=== PATIENT | female | born 1970 | race Caucasian/White ===

== ENCOUNTER 2020-12-22 12:49 | Outpatient (CLI) | payer BC, SELFPAY ==
--- NOTE | ~2020-12-22 | MM_ITS ---
EXAMINATION: MM screening [facility] BI w [facility]raig HISTORY: Screening TECHNIQUE: Craniocaudal and mediolateral oblique 3-D tomosynthesis images were obtained and synthetic 2-D images were generated. CAD analysis was submitted and interpreted. COMPARISON: Comparison to multiple prior studies sequentially, with oldest reviewed study dated 09/07. BREAST PARENCHYMAL COMPOSITION: There are scattered areas of fibroglandular density. FINDINGS: There is no evidence of suspicious mass, calcification, or architectural distortion to sugg est malignancy in either breast. There has been no suspicious interval change. IMPRESSION: 1. No mammographic evidence of malignancy. 2. Recommend routine screening mammography in one year. BI-RADS Category 1: Negative Reviewed, dictated and finalized at location A.
== END 2020-12-22 12:50 | disposition home or self-care (01) ==
LOC: ANHIMG 12:52
PROVIDERS: PCP Family Medicine; Visit Provider Physician Assistant Medical
DX: Z12.31 Encounter for screening mammogram for malignant neoplasm of breast (principal)
CPT/HCPCS: 77063; 77067

== ENCOUNTER → 2021-06-08 12:29 | Outpatient (CLI) | payer BC, SELFPAY ==
--- NOTE | ~2021-06-08 | XR_ITS ---
EXAMINATION: XR elbow LT min 3V EXAM DATE: 06/08/2021 12:53 INDICATION: M79.639 - Pain in unspecified forearm. TECHNIQUE: Left elbow frontal, lateral with flexion, and oblique projections obtained and reviewed. There is no prior study for comparison. FINDINGS: Left elbow anterior humeral line intact. There is acute closed posttraumatic nondisplace d fracture through the left radial head. There is an elbow joint effusion. Some soft tissue swelling identified medially. IMPRESSION: Acute nondisplaced left radial head fracture. Reviewed, dictated and finalized at location B.
--- NOTE | ~2021-06-08 | XR_ITS ---
EXAMINATION: XR wrist LT w scaphoid, XR forearm LT 2V EXAM DATE: 06/08/2021 12:53 (accession [id number]), 06/08/2021 12:54 (accession [id number]) INDICATION: M79.639 - Pain in unspecified forearm. Patient fell onto both palms/wrists 2 days ago, c/ o anterior L wrist pain, L posterior forearm pain and L medial elbow pain. TECHNIQUE: Left wrist frontal, frontal with ulnar deviation, oblique and lateral projections obtained and reviewed. Frontal and lateral projections left forearm. FINDINGS: Difficult to identify nondisplaced radial head fracture. Left wrist scapholunate joint spac e is maintained. There are no acute left wrist fractures or dislocations identified. There is no sub cutaneous gas. The soft tissue is unremarkable. There are no radiopaque foreign bodies. IMPRESSION: 1. Left wrist exam without acute osseous findings. 2. Poorly visualized radial head fracture. Reviewed, dictated and finalized at location B. IMPRESSION: 1. Left wrist exam without acute osseous findings. 2. Poorly visualized radial head fracture.
== END ==
PROVIDERS: PCP Family Medicine; Visit Provider Nurse Practitioner Family
DX: S52.125A Nondisplaced fracture of head of left radius, initial encounter for closed fracture (principal)
CPT/HCPCS: 73080; 73090; 73110

== ENCOUNTER → 2021-07-06 11:27 | Outpatient (CLI) | payer BC, SELFPAY ==
--- NOTE | ~2021-07-06 | XR_ITS ---
EXAMINATION: XR foot LT min 3V DATE: 07/06/2021 16:54 INDICATION: Left foot pain TECHNIQUE: Dorsoplantar, lateral, and 2 oblique views of the left foot were obtained. COMPARISON: 10/23/2014 FINDINGS: There are healed fractures at the lateral aspect of the cuboid and calcaneus. An accessory os naviculare is noted. No acute fracture is identified. Bone alignment is normal. 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 The soft tissues are unremarkable. IMPRESSION: 1. No acute osseous abnormality. Reviewed, dictated and finalized at location A.
--- NOTE | ~2021-07-06 | XR_ITS ---
EXAMINATION: XR ankle LT min 3V DATE: 07/06/2021 16:54 INDICATION: Left ankle pain TECHNIQUE: Anteroposterior, lateral, mortise, and additional oblique view of the ankle were obtained. 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 No acute fracture is identified. Bone alignment is normal. The mortise is intact. The soft tissues are unremarkable. An accessory os naviculare is noted. IMPRESSION: 1. No acute osseous abnormality. Reviewed, dictated and finalized at location A.
== END ==
PROVIDERS: PCP Nurse Practitioner Family; Visit Provider Nurse Practitioner Family
DX: M25.572 Pain in left ankle and joints of left foot (principal); M25.475 Effusion, left foot
CPT/HCPCS: 73610; 73630

== ENCOUNTER → 2022-08-09 15:21 | Outpatient (CLI) | payer BC, SELFPAY ==
--- NOTE | ~2022-08-09 | XR_ITS ---
XR_[id number]_CR DATE: 08/09/2022 15:36 INDICATION: Neck pain TECHNIQUE: AP, lateral, open-mouth views COMPARISON: None FINDINGS: There is straightening of the cervical spine. C1 and C2 are normally aligned and the odonto id process is intact. No fracture or dislocation or locked facet or prevertebral soft tissue swelling. There is minimal loss of interspace height and slight retrolisthesis at C5-6. The cervical interspace s are otherwise well preserved. IMPRESSION: Mild degenerative disc disease and minimal retrolisthesis at C5-C6 Straightening Reviewed, dictated and finalized at Location A. Reviewed, dictated and finalized at location A.
== END ==
PROVIDERS: PCP Family Medicine; Visit Provider Nurse Practitioner Family
DX: M50.30 Other cervical disc degeneration, unspecified cervical region (principal)
CPT/HCPCS: 72040